=== PATIENT | male | born 1975 | race Caucasian/White ===

== ENCOUNTER 2021-01-06 11:52 | Inpatient (IN) | payer OTHER ==
[2021-01-06 14:40] VITALS: BMI 21.9
[2021-01-06] MEDS ORDERED: BISMUTH SUBSALICYLATE 524 MG/30 ML PO PRN (14:40)
[2021-01-06] MEDS ORDERED: MAGNESIUM HYDROX 2400MG/30ML ORAL SUSPENSION 30 ML CUP PO PRN (14:40)
[2021-01-06] MEDS ORDERED: MAGNESIUM CITRATE 300 ML BOTTLE PO PRN (14:40)
[2021-01-06] MEDS ORDERED: MAG HYDROX/AL HYDROX/SIMETH 30 ML UNIT-DOSE CUP PO PRN (14:40)
[2021-01-06] MEDS ORDERED: METHOCARBAMOL 500 MG TABLET PO PRN (14:40)
[2021-01-06] MEDS ORDERED: IBUPROFEN 400 MG TABLET (FP) PO PRN (14:40)
[2021-01-06] MEDS ORDERED: hydrOXYzine PAMOATE 25 MG CAPSULE (FP) PO PRN (14:40)
[2021-01-06] MEDS ORDERED: LORazepam 1 MG TABLET PO PRN (14:40)
[2021-01-06] MEDS ORDERED: NICOTINE 10 MG CARTRIDGE (INHALER) IH PRN (14:40)
[2021-01-06] MEDS ORDERED: ONDANSETRON *ODT* 4 MG TABLET SL PRN (14:40)
[2021-01-06] MEDS ORDERED: NICOTINE POLACRILEX 4 MG GUM BUC PRN (14:40)
[2021-01-06] MEDS ORDERED: ACETAMINOPHEN 325 MG TABLET (FP) PO PRN ×2 (14:40)
[2021-01-06] MEDS ORDERED: MENTHOL/PHENOL 1 EACH UD MM PRN (14:40)
[2021-01-06] MEDS: LORazepam 2 MG TABLET PO SCH ×2 (18:10→22:25)
[2021-01-06] MEDS: MELATONIN 5 MG TABLETS PO SCH (22:24)
[2021-01-06] MEDS: THIAMINE HCL 100 MG TABLET (FP) PO SCH (22:25)
[2021-01-07] MEDS: LORazepam 2 MG TABLET PO SCH ×4 (06:53→22:22)
[2021-01-07] MEDS: PRENATAL VITAMINS W/ FOLIC ACID TABLET (FP) PO SCH (10:19)
[2021-01-07 13:13] LABS: ALBUMIN 3.6 g/dl (3.4-5.0); CALCIUM 9.5 mg/dL (8.5-10.1); HEMATOCRIT 40.9 % (35.4-49); HEMOGLOBIN 14.1 GM/dL (11.7-16.9); MCH 33.5 pg (25.7-33.7); MCHC 34.5 g/dl (32.0-35.9); MEAN CELL VOLUME 97.1 fl (80-96); MEAN PLT VOLUME 8.9 fl (7.5-11.1); PLATELET COUNT 146 10^3/uL (134-434); RBC 4.21 M/mm3 (4.00-5.60); RDW 13.4 % (11.9-15.9); WHITE BLOOD COUNT 7.2 K/mm3 (4.0-10.0)
[2021-01-07 13:14] LABS: BLOOD UREA NITROGEN 11.3 mg/dL (7-18)
[2021-01-07 13:17] LABS: BILIRUBIN,TOTAL 1.1 mg/dL (0.2-1); CREATININE 0.7 mg/dL (0.55-1.3); TOT PROT 7.6 g/dl (6.4-8.2)
[2021-01-07] MEDS: MELATONIN 5 MG TABLETS PO SCH (22:23)
[2021-01-07] MEDS: THIAMINE HCL 100 MG TABLET (FP) PO SCH (22:23)
[2021-01-08] MEDS: LORazepam 1 MG TABLET PO SCH ×4 (06:16→22:32)
[2021-01-08] MEDS: PRENATAL VITAMINS W/ FOLIC ACID TABLET (FP) PO SCH (10:15)
[2021-01-08] MEDS: THIAMINE HCL 100 MG TABLET (FP) PO SCH (22:32)
[2021-01-08] MEDS: MELATONIN 5 MG TABLETS PO SCH (22:32)
[2021-01-09] MEDS ORDERED: LORazepam 0.5 MG TABLET PO PRN
[2021-01-09] MEDS: LORazepam 0.5 MG TABLET PO SCH ×4 (05:51→22:01)
[2021-01-09 08:45] LABS: SGOT/AST 266 U/L (15-37); SGPT/ALT 190 U/L (13-61)
[2021-01-09] MEDS: PRENATAL VITAMINS W/ FOLIC ACID TABLET (FP) PO SCH (10:19)
[2021-01-09] MEDS: THIAMINE HCL 100 MG TABLET (FP) PO SCH (21:59)
[2021-01-09] MEDS: MELATONIN 5 MG TABLETS PO SCH (22:00)
[2021-01-10] MEDS ORDERED: LORazepam 0.5 MG TABLET PO ONE (05:00)
[2021-01-10] MEDS: PRENATAL VITAMINS W/ FOLIC ACID TABLET (FP) PO SCH (09:13)
[2021-01-10 09:34] VITALS: BP 121/83; PULSE 72; TEMP 96.9
[2021-01-10 09:49] LABS: SGPT/ALT 199 U/L (13-61)
[2021-01-10 09:54] LABS: SGOT/AST 201 U/L (15-37)
== END 2021-01-10 09:22 | disposition home or self-care (01) | DRG 775 ==
LOC: YASAS 11:52 → Y3N 14:03
PROVIDERS: ADMIT Allergy & Immunology; ATTEND Allergy & Immunology
PROC: HZ2ZZZZ Detoxification Services for Substance Abuse Treatment (ICD-10-PCS; principal; 2021-01-06)
DX: F10.230 Alcohol dependence with withdrawal, uncomplicated (principal); F17.210 Nicotine dependence, cigarettes, uncomplicated; R74.8 Abnormal levels of other serum enzymes
CPT/HCPCS: 36415; 80053; 84450; 84460; 85027; 86780